=== PATIENT | male | born 1995 | race Two or more races ===

== ENCOUNTER 2022-11-02 17:19 | Emergency (ER) | payer OTHER, SELFPAY ==
[2022-11-02 17:20] VITALS: BP 138/72; PULSE 73; RESP 14; TEMP 36.6; O2SAT 98; BMI 28.2
--- NOTE | 2022-11-02 17:45 | EX.ED.GENINJ ---
HPI <ANASTACIA Bobby - Last Filed: 11/02/22 18:58> History of Present Illness Chief Complaint: Laceration Narrative Narrative: Patient presenting today with an abrasion to his right knee that he got while chopping wood this afternoon and missed the piece of wood and hit his knee. He denies any use of blood thinners. He is able to ambulate okay and has full range of motion in his right knee. Patient does not know the last time he had a tetanus shot. PFSH <ANASTACIA Bobby - Last Filed: 11/02/22 18:58> PFSH Medical History no medical history Allergy/AdvReac Type Severity Reaction Status Date / Time No Known Allergies Allergy Verified 11/02/22 17:20 Surgical History no surgical history Social History Smoking Status: Never smoker ROS <ANASTACIA Bobby - Last Filed: 11/02/22 18:58> ROS ED Constitutional Constitutional ED: Denies chills or fever(s) Cardiovascular Cardiovascular: Denies chest pain Respiratory/Chest Respiratory/Chest: Denies cough or dyspnea Gastrointestinal Gastrointestinal: Denies abdominal pain, nausea or vomiting Musculoskeletal Musculoskeletal: Denies arthralgias or myalgias Integumentary Reports Abrasions; Denies abscess or rash Neurologic Neurologic: Denies weakness Psychiatric Psychiatric: Denies anxiety, depression, suicidal ideation or suicidal thoughts EXAM <ANASTACIA Bobby - Last Filed: 11/02/22 18:58> Physical Exam Const Vital Signs: 11/02/22 17:20 Temperature 98 F Temperature Source Temporal Pulse Rate 73 Respiratory Rate 14 Blood Pressure 138/72 H Blood Pressure Mean 94 Pulse Ox 98 Oxygen Delivery Method Room Air Positive well nourished, well developed and no apparent distress General Appearance ED: well developed HEENT Reports normocephalic and head/scalp atraumatic Mouth ED: Yes moist mucous membranes normal Eyes PERRL and EOMs intact bilaterally Neck full ROM and supple Chest Wall inspection of chest normal Resp normal respiratory effort and clear to auscultation bilaterally Cardio regular rate and regular rhythm GI soft to palpation, non-tender, non-distended and no masses Back/Spine normal ROM and normal to inspection Extremity normal to inspection and full ROM Extremity Narrative: DP pulses 2+ and equal bilaterally, good capillary refill, sensation intact Neuro oriented x3, CN's II-XII intact bilaterally, moves all extremities, no focal motor deficits and no sensory deficits noted Sensorium / Orientation: awake and alert Psych mental status grossly normal and thought process normal Skin Skin Narrative: Small pinpoint abrasion on patient's right knee. No penetrating wound. <Dr. Laureano Rodriguez MD - Last Filed: 11/03/22 01:10> Physical Exam Const Vital Signs: 11/02/22 17:20 Temperature 98 F Temperature Source Temporal Pulse Rate 73 Respiratory Rate 14 Blood Pressure 138/72 H Blood Pressure Mean 94 Pulse Ox 98 Oxygen Delivery Method Room Air <Dr. Laureano Rodriguez MD - Last Filed: 11/03/22 01:10> Procedures Lacerations Right knee: Length: 0.25 cm Depth: Skin Shape: Linear Prep: Sterile Conditions and Chlorhexadine Laceration repair: Dermabond and Lidocaine with epi (Topical) Comment: Good hemostasis MDM <ANASTACIA Bobby - Last Filed: 11/02/22 18:58> MDM MDM Narrative Medical decision making narrative: Presenting today with a small pinpoint abrasion to his right knee. There is no penetrating trauma. Patient has full range of motion in his right knee and has no tenderness to the area. the area will be anesthetized with topical let, then cleaned with chlorhexidine and skin glue will be applied. Tetanus will be updated. Patient be discharged in stable condition and is comfortable with plan. <Dr. Laureano Rodriguez MD - Last Filed: 11/03/22 01:10> [facility] Treatment and Re-Evaluation Narrative: Seen and evaluated independently and in conjunction with physician pier master assistant. Agree with notes above unless documented otherwise. Patient was using a hatchet and accidentally injured his right knee but it is a very small wound, it is not a puncture, more like a 0.25 cm laceration that is superficial but will not stop bleeding. No bony tenderness, no problems walking. See the procedure note, managed with Dermabond. Tetanus updated. Discharge Plan Triage Chief Complaint: Laceration ED Midlevel Provider: Laureen Collins ED Provider: Laureaon Rodriguez Dx/Rx/DC Orders Clinical Impression: Laceration of knee, right Instructions: ED Laceration, Extremity: Skin Glue Primary Care Provider: Care Physician,No Primary Referrals: Care Physician,No Primary [Primary Care Provider] - Activity Restrictions/Additional Instructions: Return for any signs of infection such as increased redness to the area, puslike discharge, fever Disposition Disposition: Home, Self Care Discharge Date/Time: 11/02/22 18:25
[2022-11-02] MEDS: Diphth,Pertuss(Acell),Tet Vac 0.5 ML Vial IM (17:57)
[2022-11-02] MEDS: Lidocaine/Epi/Tetracaine 50 ML 1 APPLIC TOPICAL (18:24)
== END 2022-11-02 18:25 | disposition home or self-care (01) ==
PROVIDERS: Emergency Provider Emergency Medicine; Visit Provider Emergency Medicine
DX: S81.011A Laceration without foreign body, right knee, initial encounter (principal); W27.0XXA Contact with workbench tool, initial encounter; Z23 Encounter for immunization
CPT/HCPCS: 90471; 90715; 99283